=== PATIENT | female | born 1955 | race Caucasian/White ===

== ENCOUNTER 2017-04-22 14:34 | Inpatient (IN) | payer OTHER ==
[~2017-04-22] VITALS: Ht 154.9 cm; Wt 65.8 kg
--- NOTE | 2017-04-22 14:43 | NUR ---
PT AMBULATED TO BED 8.
[2017-04-22 14:45] VITALS: BP 162/99
--- NOTE | 2017-04-22 15:36 | NUR ---
61/F PRESENT TO ER C/O BURNING SENSATION TO STEPHANIE EARS AND ACHE TYPE PAIN TO JAW ---ADDS SHE FEELS TONGUE IS FAVORING THE RIGHT SIDE OF MOUTH. MILD FACIAL ASYMMETRY UPON GRINNING. PT WAS SENT FROM PRIMARY CARE DOCTOR TO R/O CVA. FULL CLEAR SPEECH, TONGUE MIDLINE, DENIES DIZZINESS, DENIES BRYANT, EQUAL MUNICIPAL BOND TRADER/PUSHES BUE. WAS SEEN AT [facility] ER LAST TUESDAY. ERMD NOTIFIED OF PATIENT STATUS
[2017-04-22] MEDS ORDERED: ASPIRIN 325 MG TAB PO ONE (15:40)
--- NOTE | 2017-04-22 15:40 | NUR ---
Patient being evaluated by physician at bedside.
[2017-04-22] MEDS ORDERED: SYNTHROID0.05 MG PO (17:44)
--- NOTE | 2017-04-22 17:47 | NUR ---
Patient will be admitted to care of DR. STILES. Admited to TELE. Will go to room 109B. Belongings list completed. Report to NICOLE CAR.
--- NOTE | 2017-04-22 18:20 | NUR ---
V/S T-97.3 RR-18 NM-59 BP-156/73 A0MTZ-32% PS-0/10
--- NOTE | 2017-04-22 18:20 | NUR ---
PT. ADMITTED FROM ER, ALERT AND ORIENTED X4. BREATHING EVENLY AND UNLABORED. NO SIGNS OF ACUTE DISTRESS. SKIN IS WARM AND DRY, INTACT. NO SIGNS OF ANY BOWEL/BLADDER DISCOMFORT. DENIES OF ANY PAIN OR DISCOMFORT AT THIS TIME. ALL NEEDS ATTENDED, SAFETY PRECAUTIONS MAINTAINED, HALF BILATERAL SIDE RAILS UP, BED LOCKS ON. ORIENTED TO HOSPITAL ENVIRONMENT, CALL WITHIN REACH.
--- NOTE | 2017-04-22 18:26 | NUR ---
NEW ADMIT ORDERS RECEIVED FROM Becky SAVAGE NOTED [facility] CARRIED OUT.
--- NOTE | 2017-04-22 18:54 | NUR ---
PT ALERT AND RESPONSIVE, NO SIGNS OF ACUTE DISTRESS. WILL ENDORSE TO ONCOMING UNIVERSAL WINDING MACHINE OPERATOR NURSE FOR CONTINUITY OF CARE.
--- NOTE | 2017-04-22 19:30 | NUR ---
RECEIVED REPORT FROM DAYSSDFT NURSE. FAMILY AT BEDSIDE. PT AOX4, ABLE TO VERBALIZE NEEDS. PT C/O OF GENERALIZED WEAKNESS, LIPS NUMBNESS AND NAUSEA. PT DENIES CP, SOB. CRINKLING MACHINE OPERATOR IN PLACE. IV ACCESS ASYMPTOMATIC, PATENT AND INTACT. SALINE LOCKED. DISCUSSED AND REVIEWED PLAN OF CARE WITH PT AND FAMILY WHO VERBALIZES UNDERSTANDING. SAFETY MEASURES ENSURED. CALL LIGHT WITHIN REACH. WILL CONTINUE TO MONITOR.
[2017-04-22 20:00] VITALS: BP 134/75
--- NOTE | 2017-04-22 20:15 | NUR ---
FAMILY AT BEDSIDE REQUESTING TO TALK TO DR STILES REGARDING PT PLAN OF CARE. DISCUSSED PT'S PLAN OF CARE WITH PT AND FAMILY AT THIS TIME. LEFT A VOICEMAIL TO DR STILES ASKING IF HE WILL BE IN TONIGHT TO TALK TO PT'S FAMILY.
--- NOTE | 2017-04-22 22:00 | NUR ---
PT RESTING IN BED. CONDITION STABLE. PUDDING AND TUNA SANDWICH PROVIDED. ALL NEEDS MET. CALL LIGHT WITHIN REACH. WILL CONTINUE TO MONITOR.
[2017-04-22] MEDS ORDERED: ACETAMINOPHEN EXTRA STRENGTH 500 MG TAB PO PRN (23:45)
--- NOTE | 2017-04-22 23:45 | NUR ---
CALLED DR GO MD MADE AWARE OF PT C/O HEADACHE, ORDER RECEIVED FOR TYLENOL 500MG Q6H PRN. MADE AWARE OF HOME MED LEVOTHYROXINE 0.05MG PO QAM AND TSH 9.7 AND FREE T4 0.85, ORDER RECEIVED TO CONTINUE HOME MED.
[2017-04-23] VITALS: BP 125/59
--- NOTE | 2017-04-23 00:14 | NUR ---
PT C/O HEADACHE, SEE PAIN ASSESSMENT. ADMINISTERED TYLENOL WITH EDUCATION, PT VERBALIZES UNDERSTANDING. PT C/O BLE NUMBNESS AND WEAKNESS; BLE WARM AND PINK, CAP REFILL< 3, ABLE TO PLANTAR AND DORSIFLEX WITH MILD WEAKNESS. WILL CONTINUE TO MONITOR.
--- NOTE | 2017-04-23 01:50 | NUR ---
PT C/O BLE THROBBING AND PAIN AT LEFT KNEE DUE TO ARTHRITIS. PT STATED THAT SHE HAD THIS BEFORE AND HEAT HELPED. SCD PUT ON AND HEAT PACKS AND BLANKET PROVIDED AT LEFT KNEE. PT STATED SLIGHT RELIEF OF PAIN. WILL CONTINUE TO MONITOR.
[2017-04-23 04:00] VITALS: BP 114/62
--- NOTE | 2017-04-23 04:00 | NUR ---
CONDITION STABLE. PT SLEEPING IN BED. NO S/S OF ACUTE DISTRESS. SAFETY MEASURES ENSURED.
[2017-04-23] MEDS ORDERED: LEVOTHYROXINE 0.05 MG TAB PO SCH (06:30)
--- NOTE | 2017-04-23 07:30 | NUR ---
RECEIVED PATIENT REPORT AT BEDSIDE. PATIENT AWAKE, ALERT AND ORIENTED. NO S/S OF DISTRESS NOTED. PATIENT ON ROOM AIR. NO C/O PAIN AT THIS TIME. PATIENT ON TELE MONITORING. BED LOWERED WITH CALL LIGHT WITHIN REACH. WILL CONTINUE TO MONITOR
--- NOTE | 2017-04-23 07:38 | NUR ---
ENDORSED PLAN OF CARE TO DAYSHIFT NURSE. CONDITION STABLE.
[2017-04-23 07:43] VITALS: BP 133/62
--- NOTE | 2017-04-23 08:24 | NUR ---
PATIENT HAS BEEN SCREENED AND CATEGORIZED MODERATE NUTRITION RISK. PATIENT WILL BE SEEN WITHIN 3-5 DAYS OF ADMISSION. 04/25/17-04/27/[address]
[2017-04-23] MEDS ORDERED: ENOXAPARIN 40 MG/0.4 ML SYR SUBQ SCH (09:00)
[2017-04-23] MEDS ORDERED: ASPIRIN 325 MG TAB PO SCH (09:00)
--- NOTE | 2017-04-23 10:00 | NUR ---
PATIENT SEEN BY DR DUMONT. PER DR, PATIENT IS CLEAR FOR DISCHARGE. MADE DR STILES AWARE. PROGRESS NOTES FAXED TO DR STILES. WAITING FOR ORDERS
[2017-04-23 12:00] VITALS: BP 112/63
[2017-04-23] MEDS ORDERED: ASPIRIN325 M2 PO (12:52)
--- NOTE | 2017-04-23 13:20 | NUR ---
PATIENT DISCHARGED TO HOME. DISCHARGE INSTRUCTIONS GIVEN. PATIENT VERBALIZED UNDERSTANDING. IV LINE DISCONTINUED. TELE LEADS TAKEN OFF. PATIENT SIGNED ALL HER DISCHARGE PAPERS. PATIENT LEFT WITH ALL HER BELONGINGS AND DISCHARGE PAPERS. PATIENT LEFT IN STABLE CONDITION
--- NOTE | 2017-04-27 07:42 | NUR ---
RETRO ER NOTES, H&P AND DISCHARGE SUMMARY FAXED TO [facility] [phone] PHONE JACK [phone] [id number] Addendum: 04/27/17 at 0745 by Wendy Richardson CM ALSO CONSULT FAXED
== END 2017-04-23 13:20 | disposition home or self-care (01) | DRG 69 ==
LOC: MED 14:34 → MTU 17:13
PROVIDERS: ADMIT Family Medicine; ATTEND Family Medicine
DX: G45.9 Transient cerebral ischemic attack, unspecified (principal); G56.22 Lesion of ulnar nerve, left upper limb; R73.9 Hyperglycemia, unspecified; E03.9 Hypothyroidism, unspecified; M19.90 Unspecified osteoarthritis, unspecified site; R79.89 Other specified abnormal findings of blood chemistry; F41.9 Anxiety disorder, unspecified; Z84.89 Family history of other specified conditions; G43.909 Migraine, unspecified, not intractable, without status migrainosus; Z87.891 Personal history of nicotine dependence; Z98.51 Tubal ligation status